=== PATIENT | male | born 1960 | race Caucasian/White ===

== ENCOUNTER 2022-11-05 11:30 | Emergency (ER) | payer BC, SELFPAY ==
[2022-11-05 11:37] VITALS: BP 164/93; PULSE 93; RESP 20; TEMP 36.3; O2SAT 97
--- NOTE | 2022-11-05 12:01 | ED.GENADUL_ITS ---
Discharge Plan Disposition Patient Disposition: Home Discharge Details Clinical Impression: Abscess, dental Primary Care Provider: Unknown,Unknown ED Provider: Evans Vazquez Home Meds and New Rx's Prescriptions: New amoxicillin-pot clavulanate 875-125 mg tablet 1 tab PO Q12H Qty: 13 0RF No Action albuterol sulfate [Proventil HFA] 90 mcg/actuation HFA aerosol inhaler 2 puff Inhalation Q6H PRN Qty: 3 4RF fluticasone propionate [Flovent HFA] 110 mcg/actuation HFA aerosol inhaler 2 puff Inhalation BID Qty: 3 4RF Discharge Instructions Instructions: Dental Abscess (ED) Additional Instructions: Please follow-up with dental provider for definitive care of your dental infecti on and abscess. If you develop any new or significant worsening symptoms please return the emergency department for reassessment. Also if you develop any medication reaction please also present to the emergency department for medication changes and evaluation. Discharge Data Discharge Date/Time-TO BE ENTERED AT DEPARTURE: 11/05/22 13:08 Medical Decision Making Patient presenting to the emergency department for chief complaint of dental pain and facial swelling. Patient states intermittently for the past 10 days he has had right upper jaw dental pain. Denies any precipitating factors but does state he has not been to a dentist in many years. Then starting last night and worsening this morning he started having facial swelling and swelling in his mouth. Patient denies any difficulty breathing or swallowing, swelling to his tongue lips or throat, denies all other symptoms. Physical exam shows obvious abscess to the base of tooth #5 with tenderness to that area. Exam consistent with dental abscess. no signs of deep neck space infection ( Retropharyngeal abscess, Cleve's angina, Parapharyngeal space infection, Peritonsillar Abscess ([facility])) or Epiglottitis. Pt non toxic and stable. Patient agreeable to needle drainage of the oral abscess. Please see procedure note for needle drainage. Patient does have history of penicillin allergy that he states was only as a kid but that he has taken amoxicillin as an adult and never had any issues. We will place patient on Augmentin and have patient follow-up with dental provider. After discussion of diagnosis and plan of care patient has no further needs, questions, or concerns and states clear understanding to return to the emergency department for any worsening symptoms. This documentation was generated using [employer] system, please disregard any oddities of phrase or misspellings. HPI General Mode of arrival: ambulatory . Date/Time Provider Initiated Documentation: 11/05/22 11:31 . Limitations to Documentation: no limitations . Information obtained by: patient and RN notes reviewed . History of Present Illness 62 year old M presents to the emergency department with the chief complaint of Dental pain, facial swelling, described as mild, and is localized to the face. Patient started experiencing this day(s) (10) and it has been constant. No relieving factors improve symptom(s), No exacerbating factors reported . Patient notes no other symptoms.. Patient did receive the following treatments prior to arrival, NSAID Related Data Home Medications Medication Instructions Recorded Confirmed albuterol sulfate 90 mcg/actuation 2 puff inhalation Q6H PRN #3 ea 10/18/19 11/05/22 aerosol inhaler (Proventil HFA) fluticasone propionate 110 2 puff inhalation BID #3 ea 10/18/19 11/05/22 mcg/actuation HFA aerosol inhaler (Flovent HFA) amoxicillin 875 mg-potassium 1 tab PO Q12H #13 tabs 11/05/22 clavulanate 125 mg tablet Previous Rx's Medication Instructions Recorded albuterol sulfate 90 mcg/actuation 2 puff inhalation Q6H PRN #3 ea 10/18/19 aerosol inhaler (Proventil HFA) fluticasone propionate 110 2 puff inhalation BID #3 ea 10/18/19 mcg/actuation HFA aerosol inhaler (Flovent HFA) amoxicillin 875 mg-potassium 1 tab PO Q12H #13 tabs 11/05/22 clavulanate 125 mg tablet Allergies Allergy/AdvReac Type Severity Reaction Status Date / Time Penicillins Allergy Unknown Unverified 11/05/22 11:41 General Stated Complaint: DentalOral ABILIO: 3 Review of Systems Constitutional Constitutional: Denies chills and Denies fever(s) ENT Ears, Nose, Mouth, and Throat: Reports as per HPI, Denies change in voice, Reports dental pain, Denies dysphagia, Denies throat swelling and Denies tongue swelling Cardiovascular Cardiovascular: Denies chest pain and Denies dyspnea Respiratory Respiratory: Denies dyspnea, Denies stridor and Denies wheezing Gastrointestinal Gastrointestinal: Denies abdominal pain, Denies dysphagia, Denies nausea and Denies vomiting Integumentary/Breasts Skin/Breast: Denies rash Allergic/Immunologic Allergic/Immunologic: Denies throat swelling, Denies tongue swelling and Denies wheezing PFSH All Active Problems (Updated 11/06/22 @ 08:08 by Evans Vazquez NP) Abscess, dental (Acute) Medical History (Updated 11/06/22 @ 08:08 by Evans Vazquez NP) Asthma Hearing loss History of tobacco use 25 pack year history Hyperlipidemia Surgical History Repair, ACL DR. BRUMFIELD;LEFT Social History Smoking/Tobacco Use Status: Former Tobacco Use Smoking risk assessment performed?: Yes Alcohol Intake: current Alcohol Intake frequency: a few times a month Drug use: Never Substance use type: does not use Do you feel safe at home: Yes Do you feel safe in your relationship?: Yes Exam Const General: cooperative Orientation: alert, awake and oriented x3 Limitations: mental status not altered [facility] Head: normal to inspection, normocephalic and atraumatic Ears: hearing grossly normal bilaterally, normal mastoids bilaterally and no periauricular adenopathy General nose exam: external nose normal Mouth: oropharynx normal, no drooling, no muffled voice, normal tongue and no trismus Teeth and gingiva: abnormal tooth or associated gingiva upper right lateral incisor tender, with associated gingival edema and with associated gingival fluctuance Throat: posterior oropharynx normal, tonsils normal and uvula midline Eyes General: appearance normal, both eyes and all related structures Pupils: PERRL Neck Neck: normal visual inspection, full ROM, no lymphadenopathy, no meningeal signs, trachea midline, supple, no anterior neck swelling and no midline deformity Resp Effort & Inspection: normal respiratory effort and able to speak in complete sentences Course Vital Signs Vital signs: Vital Signs Temperature 36.3 C L 11/05/22 11:37 Pulse 93 H 11/05/22 11:37 Respiratory Rate 20 11/05/22 11:37 Blood Pressure 164/93 H 11/05/22 11:37 Pulse Oximetry 97 11/05/22 11:37 Temperature 36.3 C L 11/05/22 11:37 Temperature Source Tympanic 11/05/22 11:37 Pulse 93 H 11/05/22 11:37 Respiratory Rate 20 11/05/22 11:37 Respiratory Effort Normal, Non-Labored 11/05/22 11:42 Blood Pressure 164/93 H 11/05/22 11:37 Blood Pressure Position Sitting 11/05/22 11:37 Pulse Oximetry 97 11/05/22 11:37 Procedures Abscess I/D Site: Other (Dental) Side (if applicable): Right Sedation/analgesia: Other Local Anesthetic: Other Anesthetic (HurriCaine gel) Amount of anesthesia used (mL): 2 Technique: Needle Aspiration Amount of fluid expressed (mL): 0.5 Irrigation: No Packing used?: None Complications: Bleeding
[2022-11-05] MEDS: Amoxicillin 875/Clav. 125 TAB PO (12:03)
[2022-11-05] MEDS: Benzocaine 20% Gel 30 GM JAR MM (12:03)
== END 2022-11-05 13:08 | disposition home or self-care (01) ==
PROVIDERS: Emergency Provider Nurse Practitioner Family
DX: K08.89 Other specified disorders of teeth and supporting structures (principal)
CPT/HCPCS: 99283

== ENCOUNTER 2023-02-02 02:17 | Outpatient (CLI) | payer BC, SELFPAY ==
[2023-02-02 08:19] LABS: COMMENT (LAB VIEW ONLY) 90.93 mg/dL; Microalb ug/mg Crea 5.2 ug/mg Cr
[2023-02-02 08:20] LABS: ALT 40 U/L (16-63); AST 31 U/L (15-37); Albumin 4.5 g/dL (3.4-5.0); Alkaline Phosphatase 94 U/L (46-116); Anion Gap 9.9 mmol/L (3-11); BUN 16 mg/dL (7-18); Bilirubin, Total 0.6 mg/dL (0.2-1.0); CO2 29.1 mmol/L (21.0-32.0); CREATININE 1.1 mg/dL (0.70-1.30); Calcium 9.3 mg/dL (8.5-10.1); Calculated LDL 229 mg/dL (<100); Chloride 105 mmol/L (98-107); Cholesterol 301 mg/dL (<200); Estimated GFR 76.85 (mL/min/1.73m2); Glucose 100 mg/dL (74-106); HDL Cholesterol 50 mg/dL (40-60); Potassium 4.3 mmol/L (3.5-5.1); Sodium 144 mmol/L (136-145); Total Protein 8.1 g/dL (6.4-8.2); Triglyceride 111 mg/dL (<150)
[2023-02-03 11:00] LABS: Hepatitis C Ab w Rflx HCV PCR Negative (Negative)
[2023-02-03 11:04] LABS: HIV-1/2 Ag & Ab Screen Negative (Negative)
== END 2023-02-02 02:18 | disposition home or self-care (01) ==
LOC: LBO 02:17
PROVIDERS: PCP Nurse Practitioner Family; Visit Provider Nurse Practitioner Family
DX: I10 Essential (primary) hypertension (principal); Z13.220 Encounter for screening for lipoid disorders; Z11.4 Encounter for screening for human immunodeficiency virus [HIV]; Z11.59 Encounter for screening for other viral diseases
CPT/HCPCS: 36415; 80053; 80061; 86803; 87389; 82043; 82570

== ENCOUNTER 2023-04-03 04:27 | Outpatient (CLI) | payer BC, SELFPAY ==
[2023-04-03 07:53] LABS: ALT 39 U/L (16-63); AST 32 U/L (15-37); Albumin 4.1 g/dL (3.4-5.0); Alkaline Phosphatase 88 U/L (46-116); Anion Gap 9.1 mmol/L (3-11); BUN 17 mg/dL (7-18); Bilirubin, Total 0.8 mg/dL (0.2-1.0); CO2 27.9 mmol/L (21.0-32.0); Calculated LDL 119 mg/dL (<100); Chloride 103 mmol/L (98-107); Cholesterol 190 mg/dL (<200); Estimated GFR 86.16 (mL/min/1.73m2); Glucose 95 mg/dL (74-106); HDL Cholesterol 50 mg/dL (40-60); Sodium 140 mmol/L (136-145); Total Protein 7.2 g/dL (6.4-8.2); Triglyceride 106 mg/dL (<150)
== END 2023-04-03 04:28 | disposition home or self-care (01) ==
LOC: LBO 04:27
PROVIDERS: PCP Nurse Practitioner Family; Visit Provider Nurse Practitioner Family
DX: E78.5 Hyperlipidemia, unspecified (principal); I10 Essential (primary) hypertension
CPT/HCPCS: 36415; 80053; 80061

== ENCOUNTER 2025-01-31 15:07 | Outpatient (REF) | payer OTHER, SELFPAY ==
[2025-01-31 13:57] LABS: ALT 46 U/L (16-63); AST 36 U/L (15-37); Albumin 4.8 g/dL (3.4-5.0); Alkaline Phosphatase 78 U/L (46-116); Anion Gap 9.2 mmol/L (3-11); BUN 15 mg/dL (7-18); Bilirubin, Total 0.6 mg/dL (0.2-1.0); CO2 28.8 mmol/L (21.0-32.0); CREATININE 1.1 mg/dL (0.70-1.30); Calcium 9.3 mg/dL (8.5-10.1); Calculated LDL 101 mg/dL (<100); Chloride 103 mmol/L (98-107); Cholesterol 176 mg/dL (<200); Glucose 104 mg/dL (74-106); HDL Cholesterol 49 mg/dL (>or=40); Potassium 4.5 mmol/L (3.5-5.1); Sodium 141 mmol/L (136-145); Total Protein 7.6 g/dL (6.4-8.2); Triglyceride 130 mg/dL (<150)
== END 2025-01-31 15:08 | disposition home or self-care (01) ==
LOC: LBN 15:07
PROVIDERS: PCP Nurse Practitioner Family; Visit Provider Nurse Practitioner Family
DX: E78.5 Hyperlipidemia, unspecified (principal)
CPT/HCPCS: 80053; 80061